=== PATIENT | male | born 1960 | race Caucasian/White ===

== ENCOUNTER 2016-11-07 10:35 | Emergency (ER) | payer BC, OTHER ==
[2016-11-07 10:41] VITALS: BP 137/90; PULSE 73; TEMP 98.2; BMI 30.1
[2016-11-07 11:08] LABS: BASOPHIL 0.9 % (0-2.0); EOSINOPHIL 1.7 % (0-4.5); MCH 29.7 pg (25.7-33.7); MCHC 32.7 g/dl (32.0-35.9); MEAN CELL VOLUME 90.5 fl (80-96); MEAN PLT VOLUME 7.7 fl (7.5-11.1); NEUTROPHILS 61.7 % (42.8-82.8); PLATELET COUNT 216 K/MM3 (134-434); RDW 13.1 % (11.9-15.9); WHITE BLOOD COUNT 7.4 K/mm3 (4.0-10.0)
--- NOTE | 2016-11-07 11:16 | PDOC ---
History of Present Illness - General History Source: Patient Exam Limitations: No Limitations - History of Present Illness Initial Comments: 11/07/16 15:32 The patient is a 56 year old male, with no significant past medical history, who presents to the emergency department after being sent by Dr. Riley to recheck the potassium level. Routine bloodwork was performed at his office which revealved an elevated potassium level, which prompted Dr. Riley to send the patient to the ED to recheck the K level. On presentation the patient has no active complaints. The patient denies chest pain, shortness of breath, headache and dizziness. Denies fever, chills, nausea, vomit, diarrhea and constipation. Denies dysuria, frequency, urgency and hematuria. Allergies: Penicillin, shellfish Past surgical history: Right kidney surgery (1996) Social history: Alcohol use. No tobacco or drug use reported PMD - Dr. Riley <Enmanuel Dela Cruz - Last Filed: 11/07/16 15:32> <Koby Ferrera - Last Filed: 11/11/16 07:13> - General Chief Complaint: Revisit, Lab Variance Stated Complaint: LAB VARIANCE (PCP SENT) Time Seen by Provider: 11/07/16 10:57 Past History <Enmanuel Dela Cruz - Last Filed: 11/07/16 15:32> - Past Medical History Disorders: Yes (KIDNEYS STONES) - Psycho/Social/Smoking Cessation Hx Anxiety: No Suicidal Ideation: No Smoking History: Never smoked Have you smoked in the past 12 months: No Information on smoking cessation initiated: No Hx Alcohol Use: No Drug/Substance Use Hx: No Substance Use Type: None Hx Substance Use Treatment: No <Koby Ferrera - Last Filed: 11/11/16 07:13> - Past Medical History Allergies/Adverse Reactions: Allergies Allergy/AdvReac Type Severity Reaction Status Date / Time Penicillins Allergy Verified 11/07/16 10:39 shellfish derived Allergy Verified 11/07/16 10:39 Home Medications: Ambulatory Orders NK [No Known Home Medication] 11/07/16 Review of Systems - Review of Systems Able to Perform ROS?: Yes Comments:: 11/07/16 15:32 CONSTITUTIONAL: No reported: Fever, Chills, Diaphoresis, Generalized Weakness, Malaise, Loss of Appetite HEENT: No reported: Rhinorrhea, Nasal Congestion, Throat Pain, Throat Swelling, Difficulty Swallowing, Mouth Swelling, Ear Pain, Eye Pain, Visual Changes CARDIOVASCULAR: No reported: Chest Pain, Syncope, Palpitations, Irregular Heart Rate, Lightheadedness, Peripheral Edema RESPIRATORY: No reported: Cough, Shortness of Breath, SOB with Exertion, Orthopnea, Wheezing , Stridor, Hemoptysis GASTROINTESTINAL: No reported: Abdominal pain, Abdominal Distension, Nausea, Vomiting, Diarrhea, Constipation, Melena, Hematochezia GENITOURINARY: No reported: Dysuria, Frequency, Urgency, Hesitancy, Flank Pain, Genital Pain MUSCULOSKELETAL: No reported: Myalgia, Arthralgia, Joint Swelling, Back pain, Neck Pain SKIN: No reported: Rash, Itching, Pallor HEMEATOLOGIC/IMMUNOLOGIC: No reported: Easy Bleeding, Easy Bruising, Lymphadenopathy, Frequent infections ENDOCRINE: No reported: Unexplained Weight Gain, Unexplained Weight Loss, Heat Intolerance , Cold Intolerance NEUROLOGIC: No reported: Headache, Focal Weakness, Paresthesias, Vertigo, Lightheadedness, Unsteady Gait, Seizure, Mental Status Changes, Incontinence PSYCHIATRIC: No reported: Anxiety, Depression <Enmanuel Dela Cruz - Last Filed: 11/07/16 15:32> *Physical Exam - Vital Signs Last Vital Signs Temp Pulse Resp BP Pulse Ox 98.2 F 73 18 137/90 100 11/07/16 10:39 11/07/16 10:39 11/07/16 10:39 11/07/16 10:39 11/07/16 10:39 - Physical Exam Comments: 11/07/16 15:33 GENERAL: The patient is awake, alert, and fully oriented, Nontoxic - in no acute distress. HEAD: Normocephalic, atraumatic. EYES: extraocular movements intact, sclera anicteric, conjunctiva clear. ENT: Normal voice, Moist mucous membranes. NECK: Normal range of motion, supple LUNGS: Breath sounds equal, clear to auscultation bilaterally. No wheezes, no rhonchi, no rales. HEART: Regular rate and rhythm, without murmur, rub or gallop. ABDOMEN: Soft, nontender, normoactive bowel sounds. No guarding, no rebound.No CVA tenderness EXTREMITIES: Normal range of motion, no edema. No clubbing or cyanosis. No cords, erythema, or tenderness. NEUROLOGICAL: No facial assymetry, Normal speech, PSYCH: Normal mood, normal affect. SKIN: Warm, Dry, normal turgor <Enmanuel Dela Cruz - Last Filed: 11/07/16 15:32> - Vital Signs Last Vital Signs Temp Pulse Resp BP Pulse Ox 98.2 F 73 18 137/90 100 11/07/16 10:39 11/07/16 10:39 11/07/16 10:39 11/07/16 10:39 11/07/16 10:39 <Koby Ferrera - Last Filed: 11/11/16 07:13> ED Treatment Course - LABORATORY CBC & Chemistry Diagram: 11/07/16 11:00 11/07/16 11:00 - ADDITIONAL ORDERS Additional order review: Laboratory Results 11/07/16 11:00 Sodium 144 Potassium 4.5 Chloride 106 Carbon Dioxide 31 Anion Gap 7 L BUN 20 H Creatinine 1.2 Creat Clearance w eGFR > 60 Random Glucose 84 Calcium 9.5 Total Bilirubin 0.7 AST 20 ALT 31 Alkaline Phosphatase 66 Total Protein 7.5 Albumin 3.7 11/07/16 11:00 RBC 5.18 MCV 90.5 MCHC 32.7 RDW 13.1 MPV 7.7 Neutrophils % 61.7 Lymphocytes % 26.4 Monocytes % 9.3 Eosinophils % 1.7 Basophils % 0.9 <Enmanuel Dela Cruz - Last Filed: 11/07/16 15:32> - LABORATORY CBC & Chemistry Diagram: 11/07/16 11:00 11/07/16 11:00 <Koby Ferrera - Last Filed: 11/11/16 07:13> Medical Decision Making - Medical Decision Making 11/07/16 11:15 56y M presenting for repeat blood work. Had outpatient labs that showed K of 5 and was told to come to ED to have it rechecked. Pt is otherwise asymptomatic. I discussed the physical exam findings, ancillary test results and final diagnoses with the patient. I answered all of the patient's questions. The patient was satisfied with the care received and felt comfortable with the discharge plan and treatment plan. The patient will call their primary care physician within 24 hours to arrange follow-up and will return to the Emergency Department with any new, persistent or worsening symptoms. <Koby Ferrera - Last Filed: 11/11/16 07:13> *DC/Admit/Observation/Transfer - Attestations Scribe Attestion: 11/07/16 15:33 Documentation prepared by Enmanuel Dela Cruz, acting as medical van driver for Koby Ferrera MD <Enmanuel Dela Cruz - Last Filed: 11/07/16 15:32> - Discharge Dispostion Admit: No <Koby Ferrera - Last Filed: 11/11/16 07:13> Diagnosis at time of Disposition: Abnormal laboratory test result - Discharge Dispostion Disposition: HOME Condition at time of disposition: Improved - Referrals Referrals: Alicia Riley MD [Primary Care Provider] - - Patient Instructions Additional Instructions: Return to the emergency department immediately with ANY new, persistent or worsening symptoms. You MUST call and follow up with your doctor tomorrow for further evaluation of your symptoms. Results were discussed with you. Please make sure your doctor reviews the results of your emergency evaluation. If you had any xrays during your visit, it was read preliminarily by myself, a Radiologist will review it and if there are any additional findings we will call you. Print Language: [email or web address]
[2016-11-07 11:36] LABS: ALBUMIN 3.7 g/dl (3.4-5.0); ANION GAP 7 (8-16); BILIRUBIN,TOTAL 0.7 mg/dL (0.2-1.0); CALCIUM 9.5 mg/dL (8.5-10.1); CO2 31 mmol/L (21-32); CREATININE 1.2 mg/dL (0.7-1.3); GLUCOSE,RANDOM 84 mg/dL (74-106); SGOT/AST 20 U/L (15-37); SGPT/ALT 31 U/L (12-78)
[2016-11-07 11:38] LABS: ALK PHOS 66 U/L (45-117); TOT PROT 7.5 g/dl (6.4-8.2)
== END 2016-11-07 12:10 | disposition home or self-care (01) ==
LOC: JER 10:35
DX: E87.5 Hyperkalemia (principal)
CPT/HCPCS: 36415; 80053; 85025; 99281-25